=== PATIENT | female | born 1975 | race Caucasian/White ===

== ENCOUNTER 2018-06-05 18:21 | Emergency (ER) | payer MEDICAID, OTHER ==
[2018-06-05 19:30] VITALS: BP 132/84
--- NOTE | 2018-06-05 19:42 | UC ---
Ear Complaint HPI - HPI Summary HPI Summary: Pain on external ear for a day, denies hearng loss, discharge, or internal ear pain - History of Current Complaint Chief Complaint: UCEar Stated Complaint: EAR ACHE Time Seen by Provider: 06/05/18 19:32 Hx Last Menstrual Period: [id number] Pain Intensity: 8 - Allergies/Home Medications Allergies/Adverse Reactions: Allergies Allergy/AdvReac Type Severity Reaction Status Date / Time No Known Allergies Allergy Verified 06/05/18 19:31 PMH/Surg Hx/FS Hx/Imm Hx Previously Healthy: Yes - Surgical History Surgical History: None - Family History Known Family History: Positive: Hypertension - Social History Alcohol Use: Weekly Substance Use Type: None Smoking Status (MU): Light Every Day Tobacco Smoker Amount Used/How Often: 1 PPD Have You Smoked in the Last Year: Yes - Immunization History Most Recent Influenza Vaccination: none Review of Systems ENT: Ear Ache All Other Systems Reviewed And Are Negative: Yes Physical Exam Triage Information Reviewed: Yes Appearance: Well-Appearing, No Pain Distress, Obese Vital Signs: Initial Vital Signs Temp 98.3 F 06/05/18 19:25 Pulse 73 06/05/18 19:25 Resp 16 06/05/18 19:25 BP 132/84 06/05/18 19:25 Pulse Ox 99 06/05/18 19:25 Vital Signs Reviewed: Yes Eyes: Positive: Conjunctiva Clear ENT: Positive: Hearing grossly normal, Pharynx normal, Other - comedone lesion inferior conchae left ear, cerumen b/ Neck exam: Normal Respiratory: Positive: Chest non-tender, Lungs clear, Normal breath sounds Cardiovascular: Positive: RRR, No Murmur, Pulses Normal, Brisk Capillary Refill Ear Complaint Course/Dx - Course Course Of Treatment: pimple on inferior conchae left ear, treat with alcohol and soap and water. Referral to PCP - Differential Dx/Diagnosis Provider Diagnoses: comedone left ear Discharge - Sign-Out/Discharge Documenting (check all that apply): Patient Departure - Discharge Plan Condition: Stable Disposition: HOME Patient Education Materials: Antiacne Antibacterial (On the skin) Referrals: No Primary Care Phys,NOPCP [Primary Care Provider] - [facility] [Outside] - Billing Disposition and Condition Condition: STABLE Disposition: Home
== END 2018-06-05 20:14 | disposition home or self-care (01) ==
LOC: UCEAST 18:21
DX: L70.0 Acne vulgaris (principal); Z82.49 Family history of ischemic heart disease and other diseases of the circulatory system; F17.210 Nicotine dependence, cigarettes, uncomplicated
CPT/HCPCS: 99212; G0463